=== PATIENT | female | born 1985 | race Caucasian/White ===

== ENCOUNTER 2018-01-23 15:38 | Emergency (ER) | payer OTHER ==
[~2018-01-23] VITALS: Ht 165.1 cm; Wt 126.4 kg
[~2018-01-23 15:38] MED LIST: NOCURR
[2018-01-23] MEDS ORDERED: KETOROLAC TROMETHAMINE 30 MG/ML VIAL IM ONE (16:30)
[2018-01-23] MEDS: HYDROCODONE/ACETAMINOPHEN 10-325 MG TABLET PO ONE ×2 (16:42→16:46)
[2018-01-23 17:07] VITALS: BP 131/83
== END 2018-01-23 17:59 | disposition home or self-care (01) ==
LOC: EMS 15:38
DX: M62.838 Other muscle spasm (principal); F17.210 Nicotine dependence, cigarettes, uncomplicated
CPT/HCPCS: 96372; 99283; J1885